=== PATIENT | female | born 1975 | race Caucasian/White ===

== ENCOUNTER 2017-01-11 09:32 | Inpatient (IN) | payer OTHER ==
[~2017-01-11] VITALS: Ht 144.8 cm; Wt 44.0 kg
[~2017-01-11 09:32] MED LIST: BYSTOLIC5 MG PO; CEFTIN500 MG PO; CELLCEPT250 MG PO; CIPRO500 MG PO; CRANBERRY400 MG PO; IRON325 M1 PO; PREDNISONE5 MG PO; PROCRIT10000 UNI1 SC; SIMVASTATIN40 MG PO; SIROLIMUS1 MG PO; ZOFRAN4 MG PO
[2017-01-11 10:23] LABS: ADD MIUA? YES; BILIRUBIN NEGATIVE; BLOOD NEGATIVE; COLOR YELLOW ((YELLOW)); GLUCOSE (STRIP) NEGATIVE; KETONES NEGATIVE; LEUKOCYTES SMALL; NITRITE NEGATIVE; PROTEIN (STRIP) 100; UROBILINOGEN 0.2 MG/DL (0.2-1.0)
[2017-01-11 10:25] LABS: EOSINOPHIL (%) 0.1 % (0-5); HEMATOCRIT 29.5 % (36.0-46.0); IMMATURE GRANULOCYTE (%) 0.6 % (0.0-0.7); IMMATURE GRANULOCYTE COUNT 0.1 K/uL; INSTRUMENT ABS NEUTROPHIL CT 7.2 K/uL; LYMPHOCYTE COUNT 0.3 K/uL (1.0-2.8); MCH 27.3 PG (29.0-34.0); MCHC 31.9 G/DL (30.0-36.0); MCV 85.8 FL (83-99); MEAN PLAT.VOLUME 9.5 uM^3 (9.5-12.4); MONOCYTE (%) 8.3 % (3-12); MONOCYTE COUNT 0.7 K/uL (0-0.8); NEUTROPHIL (%) 87.3 % (45-76); NEUTROPHIL COUNT 7.2 K/uL (1.8-6.4); PLATELET COUNT 251 K/uL (156-360); RBC DIS.WIDTH-CV 14.3 % (11.8-14.6); RBC DIS.WIDTH-SD 44.3 % (39-53); RED BLOOD COUNT 3.44 M/uL (3.80-5.20); WHITE BLOOD COUNT 8.3 K/uL (4.1-10.2)
[2017-01-11 10:29] LABS: BACTERIA RARE /HPF; EPITHELIAL CELLS 4+ /HPF; MUCUS TRACE /LPF; UCUL ADDED? YES; WHITE BLOOD CELLS 20-30 /HPF (0-5)
[2017-01-11 10:33] LABS: CHLORIDE 106 mEq/L (99-109); POTASSIUM 4.5 mEq/L (3.7-5.4); SODIUM 132 mEq/L (136-147)
[2017-01-11 10:34] LABS: GLUCOSE 96 mg/dL (70-99)
[2017-01-11 10:36] LABS: ANION GAP 14 MEQ/L (2-14)
[2017-01-11 10:38] LABS: GFR ESTIMATE (CALCULATED) 17 mL/min/
[2017-01-11 10:39] LABS: UREA NITROGEN (BUN) 36 mg/dL (9-23)
[2017-01-11] MEDS ORDERED: CRANBERRY 4001 EAC1 PO (18:24)
[2017-01-11] MEDS ORDERED: BYSTOLIC5 MG PO ×2 (18:25→18:26)
[2017-01-11] MEDS ORDERED: RAPAMUNE1 MG PO (18:27)
[2017-01-11] MEDS ORDERED: COZAAR25 MG PO (18:28)
[2017-01-11] MEDS ORDERED: LO-DOSE ASPIRIN81 M1 PO (18:29)
[2017-01-11] MEDS ORDERED: TYLENOL EXTRA500 MG PO (18:29)
[2017-01-11] MEDS ORDERED: ERGOCALCIF50000 UNIT PO (18:29)
[2017-01-11 20:15] VITALS: BP 147/80
[2017-01-11 23:30] VITALS: BP 120/67
[2017-01-12 03:25] VITALS: BP 99/64
[2017-01-12 07:03] LABS: EOSINOPHIL COUNT 0.1 K/uL (0-0.3); HEMATOCRIT 27.5 % (36.0-46.0); IMMATURE GRANULOCYTE (%) 0.8 % (0.0-0.7); INSTRUMENT ABS NEUTROPHIL CT 4.2 K/uL; LYMPHOCYTE COUNT 0.4 K/uL (1.0-2.8); MCH 27.6 PG (29.0-34.0); MCHC 31.3 G/DL (30.0-36.0); MCV 88.1 FL (83-99); MEAN PLAT.VOLUME 9.7 uM^3 (9.5-12.4); MONOCYTE (%) 9.5 % (3-12); MONOCYTE COUNT 0.5 K/uL (0-0.8); NEUTROPHIL (%) 80.7 % (45-76); NEUTROPHIL COUNT 4.2 K/uL (1.8-6.4); PLATELET COUNT 223 K/uL (156-360); RBC DIS.WIDTH-CV 14.5 % (11.8-14.6); RED BLOOD COUNT 3.12 M/uL (3.80-5.20); WHITE BLOOD COUNT 5.2 K/uL (4.1-10.2)
[2017-01-12 07:51] LABS: ANION GAP 9 MEQ/L (2-14); CHLORIDE 113 MEQ/L (99-109); GFR ESTIMATE (CALCULATED) 20 mL/min/; GLUCOSE 78 mg/dL (70-99); POTASSIUM 4.7 MEQ/L (3.7-5.4); SAMPLE HEMOLYSIS CHECK 0; SAMPLE ICTERIC CHECK 0; SAMPLE LIPEMIA CHECK 0; SODIUM 137 MEQ/L (136-147); UREA NITROGEN (BUN) 36 mg/dL (9-23)
[2017-01-12 08:15] VITALS: BP 143/92
[2017-01-12 15:05] VITALS: BP 105/58; BP 128/83
[2017-01-13 00:10] VITALS: BP 171/89
[2017-01-13 01:06] VITALS: BP 153/93
[2017-01-13 06:55] VITALS: BP 128/80
[2017-01-13 07:19] LABS: EOSINOPHIL (%) 1.4 % (0-5); EOSINOPHIL COUNT 0.1 K/uL (0-0.3); HEMATOCRIT 23.8 % (36.0-46.0); IMMATURE GRANULOCYTE (%) 0.5 % (0.0-0.7); INSTRUMENT ABS NEUTROPHIL CT 3.9 K/uL; LYMPHOCYTE COUNT 0.7 K/uL (1.0-2.8); MCH 28.6 PG (29.0-34.0); MCHC 32.4 G/DL (30.0-36.0); MCV 88.5 FL (83-99); MEAN PLAT.VOLUME 9.7 uM^3 (9.5-12.4); MONOCYTE (%) 18.9 % (3-12); MONOCYTE COUNT 1.1 K/uL (0-0.8); NEUTROPHIL (%) 67.3 % (45-76); NEUTROPHIL COUNT 3.9 K/uL (1.8-6.4); PLATELET COUNT 215 K/uL (156-360); RBC DIS.WIDTH-CV 14.6 % (11.8-14.6); RBC DIS.WIDTH-SD 46.5 % (39-53); RED BLOOD COUNT 2.69 M/uL (3.80-5.20); WHITE BLOOD COUNT 5.8 K/uL (4.1-10.2)
[2017-01-13 08:01] LABS: ANION GAP 9 MEQ/L (2-14); CHLORIDE 115 MEQ/L (99-109); GLUCOSE 82 mg/dL (70-99); POTASSIUM 4.3 MEQ/L (3.7-5.4); SAMPLE HEMOLYSIS CHECK 0; SAMPLE ICTERIC CHECK 0; SAMPLE LIPEMIA CHECK 0; SODIUM 138 MEQ/L (136-147); UREA NITROGEN (BUN) 29 mg/dL (9-23)
[2017-01-13 08:06] LABS: GFR ESTIMATE (CALCULATED) 27 mL/min/
[2017-01-13] MEDS ORDERED: ALBUTEROL2.5 MG/0.5 AEROSOL (15:46)
[2017-01-13 16:04] LABS: HEMATOCRIT 26.1 % (36.0-46.0)
[2017-01-13 16:22] LABS: IRON 47 MCG/DL (35-150)
[2017-01-13 18:51] VITALS: BP 171/86
[2017-01-13 19:27] VITALS: BP 158/98
[2017-01-13 23:36] VITALS: BP 128/79
[2017-01-14 07:45] VITALS: BP 154/97
[2017-01-14 08:07] LABS: EOSINOPHIL (%) 5.4 % (0-5); EOSINOPHIL COUNT 0.3 K/uL (0-0.3); HEMATOCRIT 26.1 % (36.0-46.0); IMMATURE GRANULOCYTE (%) 0.7 % (0.0-0.7); INSTRUMENT ABS NEUTROPHIL CT 3.5 K/uL; LYMPHOCYTE COUNT 0.9 K/uL (1.0-2.8); MCH 27.2 PG (29.0-34.0); MCHC 31.8 G/DL (30.0-36.0); MCV 85.6 FL (83-99); MEAN PLAT.VOLUME 9.6 uM^3 (9.5-12.4); MONOCYTE (%) 18.6 % (3-12); MONOCYTE COUNT 1.1 K/uL (0-0.8); NEUTROPHIL COUNT 3.5 K/uL (1.8-6.4); PLATELET COUNT 268 K/uL (156-360); RBC DIS.WIDTH-CV 14.6 % (11.8-14.6); RED BLOOD COUNT 3.05 M/uL (3.80-5.20)
[2017-01-14 08:30] LABS: ANION GAP 10 MEQ/L (2-14); CHLORIDE 116 MEQ/L (99-109); GFR ESTIMATE (CALCULATED) 27 mL/min/; GLUCOSE 79 mg/dL (70-99); POTASSIUM 3.8 MEQ/L (3.7-5.4); SAMPLE HEMOLYSIS CHECK 0; SAMPLE ICTERIC CHECK 0; SAMPLE LIPEMIA CHECK 0; SODIUM 142 MEQ/L (136-147); UREA NITROGEN (BUN) 25 mg/dL (9-23)
[2017-01-14] MEDS ORDERED: CEFTIN500 MG PO (10:32)
[2017-01-14] MEDS ORDERED: FLAGYL500 MG PO (10:32)
[2017-01-14] MEDS ORDERED: CYTRA-2 ORAL S473 ML PO (11:48)
[2017-01-14 12:28] LABS: ADD MIUA? YES; BILIRUBIN NEGATIVE; BLOOD NEGATIVE; COLOR STRAW ((YELLOW)); GLUCOSE (STRIP) NEGATIVE; KETONES NEGATIVE; LEUKOCYTES TRACE; NITRITE NEGATIVE; PROTEIN (STRIP) NEGATIVE; SPECIFIC GRAVITY 1.004 (1.000-1.030); UROBILINOGEN 0.2 MG/DL (0.2-1.0)
[2017-01-14 12:31] LABS: BACTERIA RARE /HPF; EPITHELIAL CELLS RARE /HPF; MUCUS TRACE /LPF; RED BLOOD CELLS 0-5 /HPF (0-5); WHITE BLOOD CELLS 0-5 /HPF (0-5)
== END 2017-01-14 12:58 | disposition short-term general hospital (02) | DRG 683 ==
LOC: EME 09:32 → EDOF 17:45 → 2EAST 17:45 → ENRESERV 18:14 → 2EAST 20:12
PROVIDERS: Emergency Medicine; Family Medicine; Internal Medicine Nephrology
DX: N17.9 Acute kidney failure, unspecified (principal); E87.2 Acidosis; T86.13 Kidney transplant infection; R18.8 Other ascites; I12.0 Hypertensive chronic kidney disease with stage 5 chronic kidney disease or end stage renal disease; D84.8 Other specified immunodeficiencies; Z94.0 Kidney transplant status; E86.0 Dehydration; N10 Acute pyelonephritis; N18.6 End stage renal disease; D63.1 Anemia in chronic kidney disease; D50.9 Iron deficiency anemia, unspecified; B99.8 Other infectious disease; E78.5 Hyperlipidemia, unspecified; J45.909 Unspecified asthma, uncomplicated; Z85.828 Personal history of other malignant neoplasm of skin; Z87.442 Personal history of urinary calculi; Z87.440 Personal history of urinary (tract) infections; Z79.82 Long term (current) use of aspirin; Z90.49 Acquired absence of other specified parts of digestive tract; Z90.710 Acquired absence of both cervix and uterus; Z91.048 Other nonmedicinal substance allergy status; Z88.2 Allergy status to sulfonamides
CPT/HCPCS: 71010; 74176; 80048; 81003; 82272; 82607; 82746; 83540; 83605; 83630; 84466; 85014; 85018; 85025; 87086; 87493; 94640; 94760; 99202; 99281; 99285; J0696; J0881; J2916; J7030; J7050; J7512; J7517; J7520; S0030

== ENCOUNTER 2017-09-05 10:27 | Inpatient (IN) | payer OTHER ==
[~2017-09-05] VITALS: Ht 144.8 cm; Wt 45.5 kg
[~2017-09-05 10:27] MED LIST changes: +ALBUTEROL2.5 MG/0.5 AEROSOL; +BYSTOLIC10 MG PO; +COZAAR25 MG PO; +CRANBERRY 4001 EAC1 PO; +CYTRA-2 ORAL S473 ML PO; +ERGOCALCIF50000 UNIT PO; +FLAGYL500 MG PO; +LO-DOSE ASPIRIN81 M1 PO; +RAPAMUNE1 MG PO; +TYLENOL EXTRA500 MG PO
[2017-09-05 11:51] LABS: BASOPHIL (%) 0.2 % (0-1); BASOPHIL COUNT 0.1 K/uL (0-0.1); EOSINOPHIL (%) 0 % (0-5); HEMATOCRIT 35.1 % (36.0-46.0); HEMOGLOBIN 11.2 G/DL (11.9-15.5); IMMATURE GRANULOCYTE (%) 0.9 % (0.0-0.7); LYMPHOCYTE (%) 1.2 % (15-42); LYMPHOCYTE COUNT 0.3 K/uL (1.0-2.8); MCH 28.1 PG (29.0-34.0); MCHC 31.9 G/DL (30.0-36.0); MCV 88.2 FL (83-99); MONOCYTE COUNT 1.7 K/uL (0-0.8); NEUTROPHIL (%) 89.7 % (45-76); NEUTROPHIL COUNT 18.6 K/uL (1.8-6.4); RBC DIS.WIDTH-CV 14.3 % (11.8-14.6); RBC DIS.WIDTH-SD 45.8 % (39-53); RED BLOOD COUNT 3.98 M/uL (3.80-5.20); WHITE BLOOD COUNT 20.8 K/uL (4.1-10.2)
[2017-09-05 12:00] LABS: ALBUMIN 4.3 g/dL (3.2-4.8); CHLORIDE 103 mEq/L (99-109); SODIUM 130 mEq/L (136-147)
[2017-09-05 12:03] LABS: GLUCOSE 102 mg/dL (70-99); TOTAL PROTEIN 6.9 g/dL (6.4-8.3)
[2017-09-05 12:04] LABS: TOTAL BILIRUBIN 0.9 mg/dL (0.0-1.0)
[2017-09-05 12:06] LABS: ALKALINE PHOSPHATASE 113 IU/L (3-129); GFR ESTIMATE (CALCULATED) 18 mL/min/
[2017-09-05 12:07] LABS: UREA NITROGEN (BUN) 43 mg/dL (9-23)
[2017-09-05 12:08] LABS: AST (GOT) 33 IU/L (2-34); DIRECT BILIRUBIN 0.4 mg/dL (0.0-0.3)
[2017-09-05 12:10] LABS: LIPASE 27 U/L (1.0-51.0)
[2017-09-05 12:12] LABS: TROP-I INTERPRETATION NEGATIVE; TROPONIN-I < 0.01 ng/mL (0.0-0.30)
[2017-09-05 12:31] LABS: ALT (GPT) 50 IU/L (3-49)
[2017-09-05] MEDS ORDERED: COZAAR25 MG PO (12:46)
[2017-09-05] MEDS ORDERED: CALCIUM 500 MG1 EACH PO (12:48)
[2017-09-05 14:35] LABS: APPEARANCE CLOUDY ((CLEAR)); BILIRUBIN NEGATIVE; BLOOD MODERATE; COLOR YELLOW ((YELLOW)); GLUCOSE (STRIP) NEGATIVE; KETONES NEGATIVE; LEUKOCYTES LARGE; NITRITE NEGATIVE; PROTEIN (STRIP) 100; SPECIFIC GRAVITY 1.013 (1.000-1.030); UROBILINOGEN 0.2 MG/DL (0.2-1.0)
[2017-09-05 14:55] LABS: EPITHELIAL CELLS 1+ /HPF
[2017-09-05 14:56] LABS: BACTERIA 2+ /HPF; MUCUS NONE SEEN /LPF; WHITE BLOOD CELLS TNTC /HPF (0-5)
[2017-09-05 15:29] LABS: PLAT.SUFFICIENCY ADEQUATE
[2017-09-05 15:31] LABS: PLATELET COUNT 193 K/uL (156-360)
[2017-09-05 18:07] LABS: C DIFF TOXIN NEGATIVE (NEGATIVE)
[2017-09-05 18:25] VITALS: BP 115/58
[2017-09-05 18:33] VITALS: BP 131/75
[2017-09-05 23:24] VITALS: BP 107/65
[2017-09-06 06:58] LABS: BASOPHIL (%) 0.1 % (0-1); EOSINOPHIL (%) 0 % (0-5); HEMATOCRIT 28.6 % (36.0-46.0); IMMATURE GRANULOCYTE (%) 1.1 % (0.0-0.7); LYMPHOCYTE (%) 0.9 % (15-42); LYMPHOCYTE COUNT 0.2 K/uL (1.0-2.8); MCH 27.8 PG (29.0-34.0); MCHC 30.8 G/DL (30.0-36.0); MCV 90.2 FL (83-99); MONOCYTE (%) 0.9 % (3-12); MONOCYTE COUNT 0.2 K/uL (0-0.8); NEUTROPHIL COUNT 18.9 K/uL (1.8-6.4); PLATELET COUNT 193 K/uL (156-360); RBC DIS.WIDTH-CV 14.6 % (11.8-14.6); RBC DIS.WIDTH-SD 48.2 % (39-53); WHITE BLOOD COUNT 19.5 K/uL (4.1-10.2)
[2017-09-06 06:59] LABS: HEMOGLOBIN 8.8 G/DL (11.9-15.5); RED BLOOD COUNT 3.17 M/uL (3.80-5.20)
[2017-09-06 07:21] VITALS: BP 124/65
[2017-09-06 07:44] LABS: CHLORIDE 114 MEQ/L (99-109); CREATININE 3.1 MG/DL (0.6-1.3); GFR ESTIMATE (CALCULATED) 17 mL/min/; GLUCOSE 142 mg/dL (70-99); POTASSIUM 4.7 MEQ/L (3.7-5.4); UREA NITROGEN (BUN) 41 mg/dL (9-23)
[2017-09-06 07:46] LABS: SODIUM 138 MEQ/L (136-147)
[2017-09-06 15:57] VITALS: BP 170/93
[2017-09-06 18:05] VITALS: BP 167/82
[2017-09-06 23:11] VITALS: BP 180/90
[2017-09-07 01:42] VITALS: BP 190/90
[2017-09-07 07:01] LABS: BASOPHIL (%) 0.1 % (0-1); EOSINOPHIL (%) 0 % (0-5); HEMATOCRIT 25.7 % (36.0-46.0); HEMOGLOBIN 8.5 G/DL (11.9-15.5); IMMATURE GRANULOCYTE (%) 0.7 % (0.0-0.7); LYMPHOCYTE (%) 2.2 % (15-42); LYMPHOCYTE COUNT 0.4 K/uL (1.0-2.8); MCH 27.6 PG (29.0-34.0); MCHC 33.1 G/DL (30.0-36.0); MONOCYTE (%) 8.4 % (3-12); MONOCYTE COUNT 1.6 K/uL (0-0.8); NEUTROPHIL (%) 88.6 % (45-76); NEUTROPHIL COUNT 16.6 K/uL (1.8-6.4); PLATELET COUNT 231 K/uL (156-360); RBC DIS.WIDTH-CV 14.8 % (11.8-14.6); RBC DIS.WIDTH-SD 45.1 % (39-53); RED BLOOD COUNT 3.08 M/uL (3.80-5.20); WHITE BLOOD COUNT 18.8 K/uL (4.1-10.2)
[2017-09-07 07:18] LABS: CREATININE 2.7 MG/DL (0.6-1.3); GFR ESTIMATE (CALCULATED) 20 mL/min/; GLUCOSE 126 mg/dL (70-99); MAGNESIUM 1.2 mg/dl (1.3-2.7); SODIUM 135 MEQ/L (136-147); UREA NITROGEN (BUN) 45 mg/dL (9-23)
[2017-09-07 07:19] LABS: CHLORIDE 102 MEQ/L (99-109); POTASSIUM 3.5 MEQ/L (3.7-5.4)
[2017-09-07 07:25] VITALS: BP 168/80
[2017-09-07 07:29] LABS: MCV 83.4 FL (83-99)
[2017-09-07 16:49] LABS: CHLORIDE 102 MEQ/L (99-109); CREATININE 2.7 MG/DL (0.6-1.3); GFR ESTIMATE (CALCULATED) 20 mL/min/; GLUCOSE 85 mg/dL (70-99); POTASSIUM 3.9 MEQ/L (3.7-5.4); SODIUM 134 MEQ/L (136-147); UREA NITROGEN (BUN) 46 mg/dL (9-23)
[2017-09-07 17:07] VITALS: BP 174/92
[2017-09-07 22:50] VITALS: BP 116/68
[2017-09-08 06:18] LABS: BASOPHIL (%) 0.1 % (0-1); EOSINOPHIL (%) 0.5 % (0-5); HEMATOCRIT 27.5 % (36.0-46.0); HEMOGLOBIN 8.9 G/DL (11.9-15.5); IMMATURE GRANULOCYTE (%) 1.4 % (0.0-0.7); LYMPHOCYTE (%) 3.6 % (15-42); LYMPHOCYTE COUNT 0.3 K/uL (1.0-2.8); MCH 27.6 PG (29.0-34.0); MCHC 32.4 G/DL (30.0-36.0); MCV 85.1 FL (83-99); MONOCYTE (%) 8.6 % (3-12); MONOCYTE COUNT 0.7 K/uL (0-0.8); NEUTROPHIL (%) 85.8 % (45-76); NEUTROPHIL COUNT 7.3 K/uL (1.8-6.4); NRBC (%) 0.2 /100 WBC (0-0); PLATELET COUNT 242 K/uL (156-360); RBC DIS.WIDTH-CV 14.8 % (11.8-14.6); RBC DIS.WIDTH-SD 46.3 % (39-53); RED BLOOD COUNT 3.23 M/uL (3.80-5.20); WHITE BLOOD COUNT 8.5 K/uL (4.1-10.2)
[2017-09-08 06:47] LABS: CHLORIDE 103 MEQ/L (99-109); CREATININE 2.8 MG/DL (0.6-1.3); GFR ESTIMATE (CALCULATED) 20 mL/min/; GLUCOSE 77 mg/dL (70-99); POTASSIUM 3.5 MEQ/L (3.7-5.4); SODIUM 139 MEQ/L (136-147); UREA NITROGEN (BUN) 48 mg/dL (9-23)
[2017-09-08] MEDS ORDERED: APRESOLINE25 MG PO (06:59)
[2017-09-08] MEDS ORDERED: CEFTIN500 MG PO (07:00)
[2017-09-08] MEDS ORDERED: CIPRO250 MG PO (07:00)
[2017-09-08] MEDS ORDERED: PROVENTIL HFA6.7 GM IH (07:00)
[2017-09-08 07:49] VITALS: BP 168/94
[2017-09-08 12:30] VITALS: BP 164/94; BP 168/94
[2017-09-08 14:22] LABS: APPEARANCE CLEAR ((CLEAR)); BILIRUBIN NEGATIVE; BLOOD SMALL; COLOR STRAW ((YELLOW)); GLUCOSE (STRIP) NEGATIVE; KETONES NEGATIVE; LEUKOCYTES MODERATE; NITRITE NEGATIVE; PROTEIN (STRIP) 100; SPECIFIC GRAVITY 1.005 (1.000-1.030); UROBILINOGEN 0.2 MG/DL (0.2-1.0)
[2017-09-08 14:37] LABS: BACTERIA 1+ /HPF; EPITHELIAL CELLS 1+ /HPF; MUCUS TRACE /LPF; RED BLOOD CELLS 0-5 /HPF (0-5); WHITE BLOOD CELLS 20-30 /HPF (0-5)
[2017-09-08 16:48] VITALS: BP 162/82
[2017-09-08 23:41] VITALS: BP 163/82
[2017-09-09 06:18] LABS: BASOPHIL (%) 0.4 % (0-1); EOSINOPHIL (%) 1.4 % (0-5); EOSINOPHIL COUNT 0.1 K/uL (0-0.3); HEMOGLOBIN 8.3 G/DL (11.9-15.5); IMMATURE GRANULOCYTE (%) 3.3 % (0.0-0.7); LYMPHOCYTE (%) 8.8 % (15-42); LYMPHOCYTE COUNT 0.5 K/uL (1.0-2.8); MCH 27.3 PG (29.0-34.0); MCHC 31.9 G/DL (30.0-36.0); MCV 85.5 FL (83-99); MONOCYTE (%) 19.2 % (3-12); NEUTROPHIL (%) 66.9 % (45-76); NEUTROPHIL COUNT 3.4 K/uL (1.8-6.4); PLATELET COUNT 192 K/uL (156-360); RBC DIS.WIDTH-CV 14.7 % (11.8-14.6); RBC DIS.WIDTH-SD 45.8 % (39-53); RED BLOOD COUNT 3.04 M/uL (3.80-5.20); WHITE BLOOD COUNT 5.1 K/uL (4.1-10.2)
[2017-09-09 06:46] LABS: CHLORIDE 105 MEQ/L (99-109); CREATININE 2.8 MG/DL (0.6-1.3); GFR ESTIMATE (CALCULATED) 20 mL/min/; GLUCOSE 84 mg/dL (70-99); POTASSIUM 4.2 MEQ/L (3.7-5.4); SODIUM 138 MEQ/L (136-147); UREA NITROGEN (BUN) 38 mg/dL (9-23)
[2017-09-09 07:25] VITALS: BP 149/82
[2017-09-09 16:18] VITALS: BP 167/97
[2017-09-10 06:40] LABS: BASOPHIL (%) 0.2 % (0-1); EOSINOPHIL (%) 2.1 % (0-5); EOSINOPHIL COUNT 0.1 K/uL (0-0.3); HEMATOCRIT 23.9 % (36.0-46.0); HEMOGLOBIN 7.6 G/DL (11.9-15.5); IMMATURE GRANULOCYTE (%) 2.5 % (0.0-0.7); LYMPHOCYTE (%) 11.6 % (15-42); LYMPHOCYTE COUNT 0.6 K/uL (1.0-2.8); MCH 27.4 PG (29.0-34.0); MCHC 31.8 G/DL (30.0-36.0); MCV 86.3 FL (83-99); MONOCYTE (%) 18.2 % (3-12); NEUTROPHIL (%) 65.4 % (45-76); NEUTROPHIL COUNT 3.5 K/uL (1.8-6.4); PLATELET COUNT 212 K/uL (156-360); RBC DIS.WIDTH-CV 14.7 % (11.8-14.6); RBC DIS.WIDTH-SD 46.8 % (39-53); RED BLOOD COUNT 2.77 M/uL (3.80-5.20); WHITE BLOOD COUNT 5.3 K/uL (4.1-10.2)
[2017-09-10 07:03] LABS: CHLORIDE 107 MEQ/L (99-109); CREATININE 2.5 MG/DL (0.6-1.3); GFR ESTIMATE (CALCULATED) 22 mL/min/; GLUCOSE 80 mg/dL (70-99); POTASSIUM 4.1 MEQ/L (3.7-5.4); SODIUM 141 MEQ/L (136-147); UREA NITROGEN (BUN) 31 mg/dL (9-23)
[2017-09-10 09:45] VITALS: BP 158/82
[2017-09-10 18:28] LABS: C DIFF TOXIN ND (NEGATIVE)
[2017-09-10 18:52] LABS: APPEARANCE CLEAR ((CLEAR)); BILIRUBIN NEGATIVE; BLOOD SMALL; COLOR STRAW ((YELLOW)); GLUCOSE (STRIP) NEGATIVE; KETONES NEGATIVE; LEUKOCYTES NEGATIVE; NITRITE NEGATIVE; PROTEIN (STRIP) 100; SPECIFIC GRAVITY 1.008 (1.000-1.030); UROBILINOGEN 0.2 MG/DL (0.2-1.0)
[2017-09-10 19:10] LABS: BACTERIA NONE SEEN /HPF; EPITHELIAL CELLS RARE /HPF; MUCUS NONE SEEN /LPF; RED BLOOD CELLS 0-5 /HPF (0-5)
[2017-09-10 20:39] VITALS: BP 170/100
[2017-09-11 00:26] VITALS: BP 154/110
[2017-09-11 06:25] LABS: BASOPHIL (%) 0.4 % (0-1); EOSINOPHIL (%) 4.1 % (0-5); EOSINOPHIL COUNT 0.3 K/uL (0-0.3); HEMATOCRIT 23.5 % (36.0-46.0); HEMOGLOBIN 7.5 G/DL (11.9-15.5); IMMATURE GRANULOCYTE (%) 1.8 % (0.0-0.7); LYMPHOCYTE (%) 13.3 % (15-42); MCH 27.8 PG (29.0-34.0); MCHC 31.9 G/DL (30.0-36.0); MONOCYTE (%) 13.7 % (3-12); NEUTROPHIL (%) 66.7 % (45-76); NEUTROPHIL COUNT 4.9 K/uL (1.8-6.4); PLATELET COUNT 247 K/uL (156-360); RBC DIS.WIDTH-CV 14.6 % (11.8-14.6); RBC DIS.WIDTH-SD 46.7 % (39-53); WHITE BLOOD COUNT 7.4 K/uL (4.1-10.2)
[2017-09-11 06:50] LABS: CHLORIDE 106 MEQ/L (99-109); CREATININE 2.2 MG/DL (0.6-1.3); GFR ESTIMATE (CALCULATED) 26 mL/min/; GLUCOSE 77 mg/dL (70-99); MAGNESIUM 1.3 mg/dl (1.3-2.7); PHOSPHORUS 3.9 mg/dL (2.5-4.9); POTASSIUM 3.7 MEQ/L (3.7-5.4); SODIUM 139 MEQ/L (136-147); UREA NITROGEN (BUN) 29 mg/dL (9-23)
[2017-09-11 07:36] VITALS: BP 194/98
[2017-09-11] MEDS ORDERED: APRESOLINE25 MG PO (10:12)
[2017-09-11] MEDS ORDERED: CEFTRIAXONE2 G1 IV (10:12)
== END 2017-09-11 14:02 | disposition home or self-care (01) | DRG 699 ==
LOC: EME 10:27 → 5EAST 13:10 → EDOF 13:10 → ENRESERV 13:25 → 5EAST 15:29
PROVIDERS: Emergency Medicine; Family Medicine; Internal Medicine Nephrology
DX: T86.13 Kidney transplant infection (principal); N10 Acute pyelonephritis; N17.9 Acute kidney failure, unspecified; E87.2 Acidosis; T86.19 Other complication of kidney transplant; I12.9 Hypertensive chronic kidney disease with stage 1 through stage 4 chronic kidney disease, or unspecified chronic kidney disease; N18.3 Chronic kidney disease, stage 3 (moderate); Y83.0 Surgical operation with transplant of whole organ as the cause of abnormal reaction of the patient, or of later complication, without mention of misadventure at the time of the procedure; B96.20 Unspecified Escherichia coli [E. coli] as the cause of diseases classified elsewhere; D63.1 Anemia in chronic kidney disease; D50.9 Iron deficiency anemia, unspecified; E87.6 Hypokalemia; J20.9 Acute bronchitis, unspecified; E78.5 Hyperlipidemia, unspecified; K52.1 Toxic gastroenteritis and colitis; T45.1X5A Adverse effect of antineoplastic and immunosuppressive drugs, initial encounter; Z85.828 Personal history of other malignant neoplasm of skin; Z87.440 Personal history of urinary (tract) infections; Z87.442 Personal history of urinary calculi; Z86.19 Personal history of other infectious and parasitic diseases; Z79.82 Long term (current) use of aspirin
CPT/HCPCS: 71046; 71250; 74176; 80048; 80048 91; 80076; 81003; 82948; 83605; 83690; 83735; 84100; 84484; 85025; 86645 90; 87040; 87077; 87086; 87186; 87493; 94640; 94640 76; 99202; 99281; 99285; J0696; J0881; J2543; J2930; J7030; J7050; J7070; J7512; J7517; J7520